=== PATIENT | male | born 1985 | race Caucasian/White ===

== ENCOUNTER 2017-04-18 19:18 | Emergency (ER) | payer BC ==
[2017-04-18 19:27] VITALS: TEMP 98.2
--- NOTE | 2017-04-18 20:16 | EDPHY ---
H & P Time Seen by Provider: 04/18/17 20:06 HPI/ROS: CHIEF COMPLAINT: "I'm worried I have neem oil poisoning." HISTORY OF PRESENT ILLNESS: This patient is a 31-year-old male who presents to the Emergency Department concerned that he may have neem oil toxicity. He has a history of an unspecified movement disorder for which he smokes marijuana regularly. He started using marijuana from a new company today that utilizes neem oil as an insecticide, so he presents concerned that he may be suffering from neem oil toxicity. He reports that he feels like he "smoked a bunch of meth." He smoked the marijuana at 1400 today and initially experienced euphoria and a manic-like state. When this subsided around 1630, he began to experience chest pressure, nausea, urinary frequency, paresthesias, and anxiety. He denies headache, dyspnea, fever, or any additional complaints. He has never experienced a similar presentation after marijuana use in the past. REVIEW OF SYSTEMS: Constitutional: No fever, no chills Eyes: No visual changes ENT: No sore throat Respiratory: No cough, no shortness of breath Cardiac: +chest pressure Gastrointestinal: +nausea, no vomiting, no abdominal pain Genitourinary: +urinary frequency, no hematuria, no dysuria Musculoskeletal: No leg pain or swelling Skin: No rash Neurological: No headache, no numbness, no weakness Psychiatric: +anxiety, no depression Past Medical/Surgical History: Movement disorder, followed by Dr. Herndon Social History: Smokes marijuana regularly for movement disorder Smoking Status: Heavy smoker Physical Exam: General Appearance: Alert, no distress Eyes: Pupils equal and round, no conjunctival pallor or injection ENT, Mouth: Mucous membranes moist Neck: Normal inspection Respiratory: Lungs are clear to auscultation Cardiovascular: Regular rate and rhythm Gastrointestinal: Abdomen is soft and non-tender Neurological: A&O, nonfocal exam Skin: Warm and dry, no rash Extremities: Nontender, no pedal edema Psychiatric: Mood and affect normal Constitutional: Initial Vital Signs Temperature (C) 36.8 C 04/18/17 19:24 Heart Rate 72 04/18/17 19:24 Respiratory Rate 18 04/18/17 19:24 Blood Pressure 153/84 H 04/18/17 19:24 O2 Sat (%) 96 04/18/17 19:24 O2 Delivery Mode Room Air Allergies/Adverse Reactions: medication intolerant Allergy (Uncoded 04/18/17 19:24) Home Medications: Medication Instructions Recorded NK [No Known Home Meds] 04/18/17 Medical Decision Making - Diagnostics EKG Interpretation: EKG interpreted by me reveals normal sinus rhythm, rate 77, right bundle branch block. Interpretation: abnormal EKG ED Course/Re-evaluation: 31-year-old male presents with multiple complaints including chest tightness, nausea, urinary frequency, and anxiety beginning acutely following marijuana use this afternoon. There are no significant findings on exam. It seems likely that he is experiencing an adverse reaction to the cannabis he used this afternoon. He declines medication for nausea at this time. Will proceed EKG. He declines chest x-ray or labs. I reviewed neem oil toxicity and doubt that this is causing his sx. EKG obtained (as above). 2047: On reevaluation, the patient is feeling much better and states that his complaints appear to be wearing off. I discussed with him his EKG results. I do not feel further evaluation is warranted at this time. The patient is agreeable to this. He is given customary return precautions, PCP referral, and will be discharged home in good condition. Differential Diagnosis: Differential diagnosis includes does not limited to dysrhythmia, acute toxicity from neem oil, hypoglycemia, hyperventilation. Departure - Departure Disposition: Home, Routine, Self-Care Clinical Impression: Adverse reaction to cannabis Qualifiers: Encounter type: initial encounter Qualified Code(s): T40.7X5A - Adverse effect of cannabis (derivatives), initial encounter Condition: Good Instructions: Medicinal Use of Cannabis (ED), Adverse Drug Reaction (ED) Additional Instructions: As we discussed, it is likely that you are experiencing an adverse reaction to the cannabis you used this afternoon. You should expect the effects to wear off within the next 24-48 hours. I suggest that you obtain your cannabis from a different dispensary in the future. If your complaints persist beyond the next 48 hours or if you experience worsening of chest pain, uncontrollable vomiting, high fever, or other serious concerns, please return to the Emergency Department immediately. Referrals: KIMMY COLLAZO [Primary Care Provider] - As per Instructions Report Scribed for: Sowmya Ordonez Report Scribed by: Diane Pablo Date of Report: 04/18/17 Time of Report: 20:12 Physician Review and Approval Statement: 04/18/17 20:12 Portions of this note were transcribed by a medical technologist microbiology. I personally performed a history, physical exam, medical decision making, and confirmed accuracy of information the transcribed note.
--- NOTE | 2017-04-18 20:36 | CPEKG ---
Heart Rate: 56 RR Interval: 1071 P-R Interval: 172 QRSD Interval: 112 QT Interval: 404 QTC Interval: 390 P [place]: 77 QRS [place]: 83 T Wave [place]: 64 EKG Severity - ABNORMAL ECG - EKG Impression: SINUS ARRHYTHMIA, RATE 48-69 EKG Impression: PROBABLE LEFT ATRIAL ABNORMALITY EKG Impression: INCOMPLETE RIGHT BUNDLE BRANCH BLOCK EKG Impression: LEFT VENTRICULAR HYPERTROPHY Electronically Signed By: Sincere Nazario 19-Apr-2017 08:53:54
[2017-04-18 20:42] VITALS: BP 125/83; PULSE 60; RESP 16; O2SAT 97
== END 2017-04-18 20:55 | disposition home or self-care (01) ==
DX: F41.9 Anxiety disorder, unspecified (principal); T40.7X5A Adverse effect of cannabis (derivatives), initial encounter; F17.200 Nicotine dependence, unspecified, uncomplicated

== ENCOUNTER 2017-04-24 10:29 | Emergency (ER) | payer BC ==
--- NOTE | 2017-04-24 10:33 | EDPHY ---
H & P Time Seen by Provider: 04/24/17 10:32 Constitutional: Initial Vital Signs Temperature (C) 36.5 C 04/24/17 10:29 Heart Rate 66 04/24/17 10:29 Respiratory Rate 18 04/24/17 10:29 Blood Pressure 137/96 H 04/24/17 10:29 O2 Sat (%) 99 04/24/17 10:29 O2 Delivery Mode Room Air Allergies/Adverse Reactions: codeine Allergy (Verified 04/24/17 10:37) diphenhydramine [From Benadryl] Allergy (Verified 04/24/17 10:37) Penicillins Allergy (Verified 04/24/17 10:37) medication intolerant Allergy (Uncoded 04/18/17 19:24) Home Medications: Medication Instructions Recorded NK [No Known Home Meds] 04/18/17 Medical Decision Making - Diagnostics Imaging Results: Imaging Impressions Chest CT 04/24/17 11:36 Impression: Normal. Findings and recommendations discussed with Lazaro Darden MD at 1230 hour, 04/24. Final report concurs with initial preliminary interpretation. ED Course/Re-evaluation: CHIEF COMPLAINT: Chest pain HISTORY OF PRESENT ILLNESS: This patient is a 31 year old male complaining of chest pain, nausea, and shortness of breath waxing and waning over the last six days. The patient states he has a complex recent medical history over the past year, including development of psychiatric medication-induced muscle movement disorder symptoms , endocrine and metabolic imbalances, and autoimmune disorders. He reports his symptoms include seizures, dystonia, tardive dyskinesia, and hypersensitivity to foods and chemicals. He was seen here , 6 days ago, with similar symptoms concerned for neem oil poisoning. Today, he states he woke up with extreme nausea, and states that his brain feels "foggy" and "no matter how much I try to breathe I cant get enough oxygen". He continues to have chest pain, which he describes as waxing and waning, localized to the lower right. He had an EKG , but denies imaging studies. He endorses watery diarrhea. He states he has treated his symptoms with natural Vitamin C and marijuana, due to sensitivities to other medications and treatments. He states his symptoms may be related to ingestion of cannabis treated with Neem oil. No fever, chills, or other associated symptoms. REVIEW OF SYSTEMS: A 10 point review of systems was performed and is negative with the exception of the elements mentioned in the history of present illness. PHYSICAL EXAM: HR, BP, O2 Sat, RR. Temp noted General Appearance: Alert, well hydrated, appropriate, and non-toxic appearing. Head: Atraumatic without scalp tenderness or obvious injury Eyes: Pupils equal, round, reactive to light and accommodation, EOMI, no trauma , no injection. Ears: Clear bilaterally, no perforation, normal landmarks Nose: Atraumatic, no rhinorrhea, clear. Throat: There is no erythema or exudates, no lesions, normal tonsils, mucus membranes moist. Neck: Supple, nontender, no lymphadenopathy. Respiratory: No retractions, no distress, no wheezes, and no accessory muscle use. Lungs are clear to auscultation bilaterally. Cardiovascular: Regular rate and rhythm, no murmurs, rubs, or gallops. Good capillary refill all extremities. Gastrointestinal: Abdomen is soft, nontender, non-distended, no masses, no rebound, no guarding, no peritoneal signs. Musculoskeletal: Normal active ROM of all extremities, atraumatic. Neurological: Alert, appropriate, and interactive. The patient has normal DTRs and non-focal cranial nerves, motor, sensory, and cerebellar exam. Skin: No rashes, good turgor, no nodules on palpation. Past medical history: Movement disorder, followed by Dr. Herndon Past surgical history: Noncontributory Family history: Noncontributory. Social history: Family at bedside. Regular marijuana use for symptom relief. DIAGNOSTICS/PROCEDURES/CRITICAL CARE TIME: The 12 lead EKG was interpreted by myself. See hard copy and/or "tracemaster" electronic copy for interpretation. Sinus rhythm, rate 66. DIFFERENTIAL DIAGNOSIS: The differential diagnosis for the patient's chest pain included but was not limited to myocardial ischemia, pulmonary embolus, chest wall pain, pleural inflammation, and pulmonary infectious causes. MEDICAL DECISION MAKING: This patient is a 31 year old male presenting with six day history of waxing and waning chest pain, nausea, and shortness of breath. The patient declines pain medication of any kind, narcotic or otherwise due to chemical sensitivities. Plan for EKG, CT to rule out acute intrathoracic processes. EKG unremarkable. Patient declines IV contrast for CT study. 12:[address] Carrington, radiologist. CT negative for acute processes. Plan to discharge home in good condition. He will follow up with his regular physician as scheduled. The patient is comfortable with this plan. - Data Points Laboratory Results: Laboratory Results 04/24/17 10:38 04/24/17 10:38 04/24/17 04/24/17 10:38 10:38 WBC 10.69 10^3/uL H 10^3/uL (3.80-9.50) RBC 5.33 10^6/uL 10^6/uL (4.40-6.38) Hgb 17.2 g/dL g/dL (13.7-17.5) Hct 47.2 % % (40.0-51.0) MCV 88.6 fL fL (81.5-99.8) MCH 32.3 pg pg (27.9-34.1) MCHC 36.4 g/dL g/dL (32.4-36.7) RDW 12.1 % % (11.5-15.2) Plt Count 176 10^3/uL 10^3/uL (150-400) MPV 9.5 fL fL (8.7-11.7) Neut % (Auto) 48.8 % % (39.3-74.2) Lymph % (Auto) 41.6 % % (15.0-45.0) [place] % (Auto) 8.0 % % (4.5-13.0) Eos % (Auto) 0.9 % % (0.6-7.6) Baso % (Auto) 0.5 % % (0.3-1.7) Nucleat RBC Rel Count 0.0 % % (0.0-0.2) Absolute Neuts (auto) 5.22 10^3/uL 10^3/uL (1.70-6.50) Absolute Lymphs (auto) 4.45 10^3/uL H 10^3/uL (1.00-3.00) Absolute Monos (auto) 0.85 10^3/uL H 10^3/uL (0.30-0.80) Absolute Eos (auto) 0.10 10^3/uL 10^3/uL (0.03-0.40) Absolute Basos (auto) 0.05 10^3/uL 10^3/uL (0.02-0.10) Absolute Nucleated RBC 0.00 10^3/uL 10^3/uL (0-0.01) Immature Gran % 0.2 % % (0.0-1.1) Immature Gran # 0.02 10^3/uL 10^3/uL (0.00-0.10) Sodium 138 mEq/L mEq/L (134-144) Potassium 3.3 mEq/L L mEq/L (3.5-5.2) Chloride 102 mEq/L mEq/L (97-110) Carbon Dioxide 20 mEq/l L mEq/l (22-31) Anion Gap 16 mEq/L mEq/L (8-16) BUN 6 mg/dL L mg/dL (7-23) Creatinine 0.8 mg/dL mg/dL (0.7-1.3) Estimated GFR > 60 Glucose 156 mg/dL H mg/dL (70-100) Calcium 10.0 mg/dL mg/dL (8.5-10.4) Troponin I < 0.012 ng/mL ng/mL (0-0.034) Departure - Departure Disposition: Home, Routine, Self-Care Clinical Impression: Chest pain Qualifiers: Chest pain type: other chest pain Qualified Code(s): R07.89 - Other chest pain Diarrhea Qualifiers: Diarrhea type: unspecified type Qualified Code(s): R19.7 - Diarrhea, unspecified Condition: Good Instructions: Chest Pain (ED), Acute Diarrhea (ED) Additional Instructions: 1. Follow up with your regular physician as scheduled. 2. Continue to stay well hydrated. 3. Return to the Emergency Department for worsening chest pain, shortness of breath, fainting, or other worsening of condition . Referrals: KIMMY COLLAZO [Primary Care Provider] - As per Instructions Patient,NotPresent [Unknown] - As per Instructions Report Scribed for: Lazaro Darden Report Scribed by: Lucita Perea Date of Report: 04/24/17 Time of Report: 10:50
[2017-04-24 10:40] VITALS: TEMP 97.7
--- NOTE | 2017-04-24 10:44 | CPEKG ---
Heart Rate: 66 RR Interval: 909 P-R Interval: 164 QRSD Interval: 116 QT Interval: 392 QTC Interval: 411 P [place]: 48 QRS [place]: 82 T Wave [place]: 60 EKG Severity - ABNORMAL ECG - EKG Impression: SINUS RHYTHM EKG Impression: INCOMPLETE RIGHT BUNDLE BRANCH BLOCK Electronically Signed By: Lazaro Darden 24-Apr-2017 14:47:37
[2017-04-24 10:59] LABS: % IMMATURE GRANULYOCYTES 0.2 % (0.0-1.1); ABSOLUTE IMMATURE GRANULOCYTES 0.02 10^3/uL (0.00-0.10); ADD DIFF? NO; ADD MORPH? NO; ADD SCAN? NO; ATYPICAL LYMPHOCYTE FLAG 20 (0-99); FRAGMENT RBC FLAG 0 (0-99); HEMATOCRIT 47.2 % (40.0-51.0); HEMOGLOBIN 17.2 g/dL (13.7-17.5); LEFT SHIFT FLG 0 (0-99); LIPEMIA HEMOLYSIS FLAG 90 (0-99); MEAN CELL HEMOGLOBIN 32.3 pg (27.9-34.1); MEAN CELL HEMOGLOBIN CONCENTR. 36.4 g/dL (32.4-36.7); MEAN CELL VOLUME 88.6 fL (81.5-99.8); MEAN PLATELET VOLUME 9.5 fL (8.7-11.7); PLATELET CLUMPS FLAG 0 (0-99); PLATELET COUNT 176 10^3/uL (150-400); RED BLOOD CELL COUNT 5.33 10^6/uL (4.40-6.38); RED CELL DISTRIBUTION WIDTH 12.1 % (11.5-15.2)
[2017-04-24 11:08] LABS: ANION GAP 16 mEq/L (8-16); CARBON DIOXIDE 20 mEq/l (22-31); CHLORIDE 102 mEq/L (97-110); CREATININE 0.8 mg/dL (0.7-1.3); GLOMERULAR FILTRATION RATE > 60; GLUCOSE 156 mg/dL (70-100); POTASSIUM 3.3 mEq/L (3.5-5.2); SODIUM 138 mEq/L (134-144)
[2017-04-24] MEDS ORDERED: IOPAMIDOL (ISOVUE 370) 100 ML BTL IV ONE (11:15)
[2017-04-24 11:20] LABS: TROPONIN I < 0.012 ng/mL (0-0.034)
[2017-04-24 13:08] VITALS: BP 121/75; PULSE 58; RESP 16; O2SAT 96
== END 2017-04-24 13:06 | disposition home or self-care (01) ==
LOC: EDUNIT#
DX: R07.89 Other chest pain (principal); R19.7 Diarrhea, unspecified
CPT/HCPCS: Q9967

== ENCOUNTER 2017-04-27 19:49 | Emergency (ER) | payer BC ==
--- NOTE | 2017-04-27 20:31 | EDPHY ---
H & P Time Seen by Provider: 04/27/17 20:04 HPI/ROS: CHIEF COMPLAINT: Dehydration HISTORY OF PRESENT ILLNESS: The patient is a 31-year-old man comes to the emergency department with both parents complaining that he is dehydrated. 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 He has been taking cannabis oil under the direction of Dr. Herndon from Neurology for his dystonia and seizures. Over the last 2 months he began having diffuse muscle pain and burning and feeling foggy and having diarrhea. He is also now having foamy sputum. He states that he feels like his blood is poisoned. He is also been diagnosed with reactive hypoglycemia by an telecommunications officer. His family discovered that the cannabis he had been receiving began using neem oil, a insecticide. There convinced that this is responsible for his symptoms. They state that the only way to make his muscle burning and pain improves with dramatic hydration. They have been waking him up every 2 hours at night to give him water. He has been drinking water all throughout the day. He has received IV fluids from his primary care physician and here in the emergency department. He has seen here twice previously for this. On his recent visit he had a CT angiogram of his chest that was negative. He states that he got behind on his fluids today and began having this pain. He and his parents are asking for IV fluids and LFTs and a stool sample that his primary had ordered earlier. No fevers. REVIEW OF SYSTEMS: Constitutional: denies: chills, fever, recent illness, recent injury EENTM: denies: blurred vision, double vision, nose congestion Respiratory: denies: cough, shortness of breath Cardiac: denies: chest pain, irregular heart rate, lightheadedness, palpitations Gastrointestinal/Abdominal: See HPI Genitourinary: denies: dysuria, frequency, hematuria, pain Musculoskeletal: see HPI Skin: denies: lesions, rash, jaundice, bruising Neurological: denies: headache, numbness, paresthesia, tingling, dizziness, weakness Hematologic/Lymphatic: denies: blood clots, easy bleeding, easy bruising Immunologic/allergic: denies: HIV/AIDS, transplant EXAM: GENERAL: Thin, anxious HEAD: Atraumatic, normocephalic. EYES: Pupils equal round and reactive to light, extraocular movements intact, sclera anicteric, conjunctiva are normal. ENT: TMs normal, nares patent, oropharynx clear without exudates. Moist mucous membranes. NECK: Normal range of motion, supple without lymphadenopathy or JVD. LUNGS: Breath sounds clear to auscultation bilaterally and equal. No wheezes rales or rhonchi. HEART: Regular rate and rhythm without murmurs, rubs or gallops. ABDOMEN: Soft, nontender, normoactive bowel sounds. No guarding, no rebound. No masses appreciated. BACK: No CVA tenderness, no spinal tenderness, step-offs or deformities EXTREMITIES: Normal range of motion, no pitting or edema. No clubbing or cyanosis. NEUROLOGICAL: Cranial nerves II through XII grossly intact. Normal speech, normal gait. 5/5 strength, normal movement in all extremities, normal sensation PSYCH: Normal mood, normal affect. SKIN: Warm, dry, normal turgor, no visible rashes or lesions. Source: Patient Exam Limitations: No limitations - Personal History Current Tetanus/Diphtheria Vaccine: Yes - Medical/Surgical History Hx Asthma: Yes Hx Chronic Respiratory Disease: No Hx Diabetes: No Hx Cardiac Disease: No Hx Renal Disease: No Hx Cirrhosis: No Hx Alcoholism: Yes Hx HIV/AIDS: No Hx Splenectomy or Spleen Trauma: No Other PMH: drug related parkinsons, metabolic disorder, schizophrenia - Family History Significant Family History: No pertinent family hx - Social History Smoking Status: Former smoker Alcohol Use: Sober Drug Use: None Constitutional: Initial Vital Signs Temperature (C) 36.8 C 04/27/17 19:50 Heart Rate 65 04/27/17 19:50 Respiratory Rate 18 04/27/17 19:50 Blood Pressure 139/80 H 04/27/17 19:50 O2 Sat (%) 96 04/27/17 19:50 O2 Delivery Mode Room Air Allergies/Adverse Reactions: aripiprazole [From Abilify] Allergy (Verified 04/27/17 19:53) chlordiazepoxide [From Librium] Allergy (Verified 04/27/17 19:54) codeine Allergy (Verified 04/24/17 10:37) diphenhydramine [From Benadryl] Allergy (Verified 04/24/17 10:37) ibuprofen Allergy (Verified 04/27/17 19:53) lithium Allergy (Verified 04/27/17 19:54) lurasidone [From Latuda] Allergy (Verified 04/27/17 19:53) Penicillins Allergy (Verified 04/24/17 10:37) medication intolerant Allergy (Uncoded 04/18/17 19:24) Home Medications: Medication Instructions Recorded NK [No Known Home Meds] 04/18/17 Medical Decision Making Procedures: Limited bedside ultrasound. Gallbladder evaluated. Nontender, negative sonographic Bolton's, small amount of sludge. No wall thickening. No stones. Small polyp seen. ED Course/Re-evaluation: We discussed the lab results. The patient is drinking too much free water. The saline should help with this and we will treat with potassium. He refused oral potassium. He states that will make him vomit. I encouraged him to either drink less free water or included electrolytes. Mom agrees with this. His bilirubin is very slightly elevated. I performed a bedside ultrasound that shows a gallbladder with minimal amount of sludging and a polyp but no wall thickening or stones. Common bile duct not well visualized. He will follow up with his primary for recheck. Differential Diagnosis: Partial list of the Differential diagnosis considered include but were not limited to; dehydration, electrolyte abnormality, anxiety, substance abuse, and although unlikely based on the history and physical exam, I also considered fever, poisoning. I discussed these differential diagnoses and the plan with the patient as well as the usual and expected course. The patient understands that the diagnosis is provisional and that in medicine we are not always correct and that further workup is often warranted. Usual and customary warnings were given. All of the patient's questions were answered. The patient was instructed to return to the emergency department should the symptoms at all worsen or return, otherwise to followup with the physician as we discussed. - Data Points Laboratory Results: Laboratory Results 04/27/17 20:35 04/27/17 20:35 Medications Given: Discontinued Medications Sodium Chloride (Ns) 1,000 mls @ 6,000 mls/hr IV ONCE ONE Stop: 04/27/17 20:57 Last Admin: 04/27/17 20:50 Dose: 1,000 mls Sodium Chloride (Ns) 1,000 mls @ 0 mls/hr IV ONCE ONE PRN Reason: Wide Open Stop: 04/27/17 20:50 Last Admin: 04/27/17 20:51 Dose: 1,000 mls Potassium Chloride (Potassium Cl 10 Meq (Premix)) 100 mls @ 100 mls/hr IV ONCE ONE Stop: 04/27/17 22:38 Last Admin: 04/27/17 21:41 Dose: 100 mls Sodium Chloride (Ns) 1,000 mls @ 0 mls/hr IV ONCE ONE PRN Reason: Wide Open Stop: 04/27/17 22:19 Last Admin: 04/27/17 22:19 Dose: 1,000 mls Potassium Chloride (Klor-Con) 40 meq PO EDNOW ONE Stop: 04/27/17 21:27 Last Admin: 04/27/17 21:39 Dose: Not Given Departure - Departure Disposition: Home, Routine, Self-Care Clinical Impression: Hyponatremia, Hypokalemia, gastrointestinal losses Adverse reaction to cannabis Qualifiers: Encounter type: initial encounter Qualified Code(s): T40.7X5A - Adverse effect of cannabis (derivatives), initial encounter Condition: Fair Instructions: Hyponatremia (ED), Hypokalemia (ED) Referrals: KIMMY COLLAZO [Primary Care Provider] - As per Instructions
[2017-04-27] MEDS ORDERED: NS 1,000 ML IV ONE ×3 (20:48→22:18)
[2017-04-27 21:03] LABS: % IMMATURE GRANULYOCYTES 0.2 % (0.0-1.1); ABSOLUTE IMMATURE GRANULOCYTES 0.01 10^3/uL (0.00-0.10); ADD DIFF? NO; ADD MORPH? NO; ADD SCAN? NO; ATYPICAL LYMPHOCYTE FLAG 20 (0-99); FRAGMENT RBC FLAG 0 (0-99); HEMATOCRIT 41.8 % (40.0-51.0); HEMOGLOBIN 15.2 g/dL (13.7-17.5); LEFT SHIFT FLG 0 (0-99); LIPEMIA HEMOLYSIS FLAG 90 (0-99); MEAN CELL HEMOGLOBIN 31.5 pg (27.9-34.1); MEAN CELL HEMOGLOBIN CONCENTR. 36.4 g/dL (32.4-36.7); MEAN CELL VOLUME 86.7 fL (81.5-99.8); MEAN PLATELET VOLUME 9.1 fL (8.7-11.7); PLATELET CLUMPS FLAG 10 (0-99); PLATELET COUNT 149 10^3/uL (150-400); RED BLOOD CELL COUNT 4.82 10^6/uL (4.40-6.38)
[2017-04-27 21:04] LABS: ALANINE AMINOTRANSFERASE 95 IU/L (21-72); ALBUMIN 4.4 g/dL (3.5-5.0); ALKALINE PHOSPHATASE 73 IU/L (38-126); ANION GAP 12 mEq/L (8-16); ASPARTATE AMINOTRANSFERASE 60 IU/L (17-59); BILIRUBIN,TOTAL 1.9 mg/dL (0.1-1.4); BILIRUBIN-CONJUGATED 0.8 mg/dL (0.0-0.5); BILIRUBIN-UNCONJUGATED 1.1 mg/dL (0.0-1.1); CALCIUM 9.5 mg/dL (8.5-10.4); CARBON DIOXIDE 21 mEq/l (22-31); CHLORIDE 95 mEq/L (97-110); CREATININE 0.7 mg/dL (0.7-1.3); GLOMERULAR FILTRATION RATE > 60; GLUCOSE 103 mg/dL (70-100); POTASSIUM 3.2 mEq/L (3.5-5.2); SODIUM 128 mEq/L (134-144); TOTAL PROTEIN 7.2 g/dL (6.3-8.2)
[2017-04-27] MEDS ORDERED: POTASSIUM CL 20 MEQ TAB PO ONE (21:26)
[2017-04-27] MEDS ORDERED: POTASSIUM Cl (KCl) 10 MEQ/100 ML BAG IV ONE (21:32)
[2017-04-27] MEDS ORDERED: POTASSIUM Cl (KCl) 100 ML IV ONE (21:39)
[2017-04-27 22:18] VITALS: BP 143/77; PULSE 79; RESP 16; O2SAT 100
[2017-04-27 22:30] VITALS: TEMP 97.9
== END 2017-04-27 22:28 | disposition home or self-care (01) ==
DX: E87.1 Hypo-osmolality and hyponatremia (principal); E87.6 Hypokalemia; K92.89 Other specified diseases of the digestive system; J45.909 Unspecified asthma, uncomplicated; Z87.891 Personal history of nicotine dependence
CPT/HCPCS: 96365